=== PATIENT | male | born 1990 | race African-American/Black ===

== ENCOUNTER 2017-12-05 09:31 | Emergency (ER) | payer BC, OTHER ==
[~2017-12-05] VITALS: Ht 172.7 cm; Wt 75.0 kg
[2017-12-05 10:54] LABS: BASOPHILS % 0.2 % (0.0-2.0); EOSINOPHILS % 0.2 % (0.0-5.0); HEMATOCRIT. 41.1 % (42.0-52.0); HEMOGLOBIN. 13.3 g/dL (14.0-18.0); LYMPHOCYTES % 10.1 % (20.0-50.0); MEAN CORPUSCULAR HEMOGLOBIN 25.3 pg (28.0-32.0); MEAN CORPUSCULAR VOLUME 78.2 fL (80.0-94.0); MEAN PLATELET VOLUME 7.7 fl (7.4-10.4); MONOCYTES % 7.8 % (2.0-8.0); NEUTROPHILS % 81.7 % (40.0-76.0); PLATELET 327 x1000/uL (130-400); RED BLOOD CELL COUNT 5.25 mill/uL (4.7-6.1)
[2017-12-05 11:01] LABS: INR 1.2; PROTHROMBIN TIME 12.1 sec (9.4-11.6)
[2017-12-05 11:04] LABS: CHLORIDE 100 mEq/L (98-107)
[2017-12-05 11:21] LABS: CLARITY URINE CLEAR (CLEAR); COLOR URINE YELLOW (YELLOW); KETONES URINE NEGATIVE (NEGATIVE); LEUKOCYTE ESTERASE URINE NEGATIVE (NEGATIVE); NITRITE URINE NEGATIVE (NEGATIVE); OCCULT BLOOD URINE NEGATIVE (NEGATIVE); PROTEIN URINE NEGATIVE (NEGATIVE); UROBILINOGEN URINE 0.2 E.U./dL (0.2-1.0)
[2017-12-05 11:34] LABS: AMMONIA < 25 uMol/L (<32)
[2017-12-05] MEDS ORDERED: SODIUM CHLORIDE 0.9% 1,000 ML IV ONE (11:45)
[2017-12-05 11:46] LABS: *AMPHETAMINES SCREEN URINE NEGATIVE (NEGATIVE); *BARBITURATES SCREEN URINE NEGATIVE (NEGATIVE); *BENZODIAZEPINES SCREEN URINE NEGATIVE (NEGATIVE); *COCAINE SCREEN URINE NEGATIVE (NEGATIVE); CANNABINOID URINE SCREEN PRESUMTIVE POSITIVE (NEGATIVE); METHADONE URINE SCREEN NEGATIVE (NEGATIVE); OPIATES URINE SCREEN NEGATIVE (NEGATIVE); PHENCYCLIDINE URINE SCREEN NEGATIVE (NEGATIVE)
[2017-12-05 11:53] LABS: HEPATITIS B SURFACE ANTIGEN NEGATIVE
[2017-12-05 12:21] LABS: HEPATITIS B CORE AB IGM NEGATIVE
[2017-12-05 12:22] LABS: HEPATITIS A AB IGM NEGATIVE (NEGATIVE)
[2017-12-05] MEDS ORDERED: ZIPRASIDONE HCL 20MG CAPSULE PO PRN (13:30)
[2017-12-05] MEDS ORDERED: LORAZEPAM 1MG TABLET PO PRN (13:30)
[2017-12-05] MEDS ORDERED: SODIUM CHLORIDE 0.9% IRRIG SOLUTION 1000ML IR ONE (15:00)
[2017-12-05] MEDS ORDERED: LIDOCAINE HCL 1% 20ML VIAL (Pyxis) INJ INFIL ONE (15:00)
[2017-12-05] MEDS ORDERED: LIDOCAINE HCL/PF 1% 10 MG/ML 5ML VIAL ONE (15:04)
[2017-12-05] MEDS ORDERED: BACITRACIN ZINC OINT UDPKT TOP ONE (16:15)
[2017-12-05] MEDS ORDERED: CEPHALEXIN 500MG CAPSULE PO ONE (16:15)
[2017-12-05 19:50] VITALS: BP 110/55
== END 2017-12-05 20:37 | disposition home or self-care (01) ==
LOC: ER 09:31
DX: F23 Brief psychotic disorder (principal); S61.411A Laceration without foreign body of right hand, initial encounter; D72.829 Elevated white blood cell count, unspecified; F12.10 Cannabis abuse, uncomplicated; R73.9 Hyperglycemia, unspecified; Z78.1 Physical restraint status; F43.10 Post-traumatic stress disorder, unspecified; X78.0XXA Intentional self-harm by sharp glass, initial encounter; Y92.018 Other place in single-family (private) house as the place of occurrence of the external cause
CPT/HCPCS: 12001; 36415; 71045; 73130; 80053; 80305; 80307; 81003; 82140; 83036; 83735; 85025; 85610; 85651; 86592; 87040; 87086; 87186; 93005; 96360; 99285; J3490; J7030; Z7610; 86705; 86709; 86803; 87340